=== PATIENT | male | born 2005 | race Hispanic/Latino ===

== ENCOUNTER 2024-05-19 21:42 | Emergency (ER) | payer SELFPAY ==
[~2024-05-19] VITALS: Ht 175.3 cm; Wt 74.8 kg
[2024-05-19 21:48] VITALS: PULSE 72; RESP 18; TEMP 98.9
[2024-05-20 01:49] VITALS: BP 112/58; PULSE 74; RESP 16; TEMP 98.3; O2SAT 100
== END 2024-05-20 | disposition home or self-care (01) ==
LOC: FSED 21:56
DX: S20.211A Contusion of right front wall of thorax, initial encounter (principal); S50.01XA Contusion of right elbow, initial encounter; V86.59XA Driver of other special all-terrain or other off-road motor vehicle injured in nontraffic accident, initial encounter; Y92.89 Other specified places as the place of occurrence of the external cause
CPT/HCPCS: 71046; 99283